=== PATIENT | male | born 1980 | race Caucasian/White ===

== ENCOUNTER 2016-06-14 13:11 | Emergency (ER) | payer MEDICARE, MEDICAID ==
[~2016-06-14] VITALS: Ht 182.9 cm; Wt 81.6 kg
[~2016-06-14 13:11] MED LIST: AMITRIPTYLINE 550 MG PO; GABAPENTIN300 MG PO; LEVEMIR100 U/ML SC; LYRICA25 MG PO; NOVOLOG FLEX100 U/ML SC; OXYCODONE 5MG TA5 MG PO
[2016-06-14] MEDS ORDERED: INSULIN RE100 UNITS/ SC (13:18)
[2016-06-14 14:00] LABS: HEMOGLOBIN 13.1 g/dL (14.1-18.0); LYMPH # 2.5 K/mm3 (0.7-4.5); LYMPH % 18.2 % (10-50)
--- NOTE | 2016-06-14 15:29 | Emergency Room Report ---
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 Had right knee surgery the first week of May 2016. He was just in hospital receiving abx for a knee infection. 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 Y Clinical Suspician of Infection? N Mental Status: 1 - Regular (Normal Baseline) Sepsis Risk:Possible Sepsis Risk Have you (or family members/close friends) recently traveled outside the [place]? N If Yes, where/when: Have you had exposure to infectious disease within the past month? TB? Other? Specify: Source patient, RN notes reviewed, family, RN/MD Exam Limitations no limitations Comment 35yo white male presents today for increasing right knee pain since s/p surgery last month between May.17 and . Pt reported he went to [facility] last month 06/03/16 for septic right knee arthritis to have right knee opened and cleaned out due to infection. Pt is unsure how area became infected. He has a hx of uncontrolled type I diabetes, which caused him to have left [facility] in the past. Pt reports leaving [facility] prior to completing iv atbx regimen. He c/o increased pain x1 week to right medial knee that feels like a sharp burning sensation since being home.. He rates pain level a 8/10, and currently on previously prescribed oxycodone 10mg Q8hr. Pt is unable to straighten knee completely since previous surgery. Pain is tolerable without movement. Pt denies redness, swelling, fever, chills, n/v/d; but did have vomitting and diarrhea x2 weeks ago. ALLERGIES Coded Allergies: No Known Allergies (12/14/15) Home Medications Reported Medications OXYCODONE IR (Oxycodone IR) 5 MG PO Q4HP PRN PAIN #105 Gabapentin (Gabapentin 300MG) 900 MG PO TID Pregabalin (Lyrica 25MG) 25 MG PO BID Amitriptyline Hcl (Amitriptyline) 50 MG PO QHS Insulin Detemir (Levemir 10ML VIAL) 18 UNITS SC BID Insulin Regular (Regular Insulin 10ML Vial) 0 UNITS SC SS History Medical History General CAD? Yes Angina: No [place]: Yes Hypertension? No Hyperlipidemia? No CHF? No DVT? Yes PE? No COPD? No Asthma? No Anemia? No GERD? No Gastric ulcers? No GI Bleed? No Hernia? No Thyroid Problems? No Hypothyroidism? No CVA? No Seizures? No Diabetes? Yes Insulin Dependent: Yes Insulin Pump: No Home FSBS? Yes Renal Insuffiency? Yes End Stage Renal Disease? No UTI? No Stones? No BPH? No GB Disease: No Nephritic Syndrome? No Asplenia? No Hepatitis? Yes Sickle Cell Disease? No Arthritis? No Migraines? No Cataracts? No Glaucoma? No MRSA? No HIV? No TB? No Anxiety? No Depression? No Cancer? No More? No Additional hx: eye exam 9 months ago. Bob shows 2 recent Oxycodone Rx's 12/03 and 12/07 for total of 195 pills Immunization Hx Ped.Immunizations UTD Yes DT/Tetanus 1-4 Years Ago Pneumonia Refuses Surgical Hx Previous Surgery?Y LEFT AKA BILATERAL SHOULDER SURGER Family History Family Hx Diabetes No CAD No Hypertension No Hyperlipidemia No Cancer No TB No Social History Smoking Hx Smoker: Current Every Day Smoker Tobacco: Yes Type Cigarettes Packs/day 1 1/2 - 2 Packs Alcohol Alcohol: No Review of Systems All Other Systems Reviewed and Negative Constitutional see HPI, denies chills, denies fever, denies malaise, denies weakness Respiratory denies no symptoms reported Cardiovascular denies no symptoms reported Gastrointestinal denies no symptoms reported, see HPI Genitourinary see HPI. denies: no symptoms reported. Musculoskeletal see HPI, joint pain, joint swelling Skin see HPI Psychiatric/Neurological no symptoms reported Physical Exam Vital Signs Vital Signs Date Time Temp Pulse Resp B/P Pulse O2 O2 Flow FiO2 Ox Delivery Rate 06/14 1723 98.9 95 18 127/86 97 06/14 1703 98.9 95 18 127/86 97 06/14 1635 18 06/14 1545 98.6 111 20 116/71 99 06/14 1456 111 20 136/79 99 06/14 1404 114 20 114/61 100 / 1311 99.0 115 20 137/71 99 General Appearance normal appearance, WD/WN, mild distress Respiratory Status Yes: trachea midline, chest symmetrical, non tender chest. No: respiratory distress. Lung Sounds bilateral: normal breath sounds, lungs clear. Cardiovascular normal exam, regular rate/rhythm, no peripheral edema, no gallop, no JVD, no murmur, no rub, normal peripheral pulses Peripheral Pulses Pulses normal Yes (left BKA) Gastrointestinal normal bowel sounds, normal exam, non tender, soft, no organomegaly Extremities limited range of motion (of the rigth knee), There is limited ROM to right knee. Pain illicited with palpation of right knee. No redness noticed. The patient is displaying swelling to anterior aspect of the right knee. 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 No Comment 03:45 pm - dr Barbour advised of the patient's condition... requested to transfer to [facility] 04:10pm-call initiated with the [facility] regarding patient's transfer back to , where his initial surgery was performed on 05.17.16. Transfer center paging Dr. Hartman, patient's orthopedic surgeon. Was put on hold. 04:20pm- case discussed with dr. Hair, advised of the patient's presentation and condition, suspicious for RIGHT knee joint effusion, possibly septic. Orthopedic surgeon, Dr. Hair, oxygen patient to be transferred to for further workup and treatment. 04:25pm-case discussed with Dr Hair, patient accepted. Prior to patient's transferred to [facility] I had a lengthy's discussion with patient advising him of the severity of his condition, and dire prognosis, with possible grade complications including , loss of organ funtion or limb, including disability. Results/Orders Laboratory Tests 06/14/16 1539: Urine Color YELLOW, Urine Appearance SL CLOUDY, Urine pH 7.0, Ur Specific [place] <= 1.005, Urine Protein NEGATIVE, Urine Ketones NEGATIVE, Urine Blood TRACE-LYSED, Urine Nitrate NEGATIVE, Urine Bilirubin NEGATIVE, Urine Urobilinogen 0.2, Ur Leukocyte Esterase 1+ H, Urine WBC 20-50, Urine Bacteria 1 +, Urine Glucose 3+ H 06/14/16 1345: Lactic Acid 0.7 06/14/16 1345: Sodium 131 L, Potassium 4.6, Chloride 95 L, Carbon Dioxide 31, BUN 9, Creatinine 0.8, Estimated Creat Clear 147, Estimated GFR (MDRD) 109, Glucose 396 H, Calcium 8.9, Total Bilirubin 0.2, AST 21, ALT 27, Alkaline Phosphatase 104, Total Protein 9.0 H, Albumin 2.6 L, Globulin 6.4 H, Albumin/Globulin Ratio 0.4 L, WBC 13.5 H, RBC 4.90, Hgb 13.1 L, Hct 41.0 L, MCV 83.6, RDW 14.2, Plt Count 715 H, MPV 7.9, Gran % 77.1, Gran # 10.4 H, Lymphocytes % 18.2, Monocytes % 3.0, Eosinophils % 0.8, Basophils % 0.9, Lymphocytes # 2.5, Monocytes # 0.4, Eosinophils # 0.1, Basophils # 0.1, PUBS MCHC 32.1, MCH 26.8 L Orders Procedure Date/time Status DIET-NOTHING BY MOUTH 06/14 D Active CULTURE, URINE 06/14 1539 Complete ELECTROCARDIOGRAM REQUEST 06/14 1326 Active CULTURE, BLOOD 06/14 1326 Active URINALYSIS/COMPLETE 06/14 1326 Complete LACTIC ACID 06/14 1326 Complete CBC WITH AUTO DIFF 06/14 1326 Complete CHEM 12 PROFILE 06/14 1326 Complete 12 LEAD EKG-JOSH (INITIAL) 06/14 UNK Active Departure Departure Time of Disposition 1702 Disposition DC/XFER from ER to T. Hosp Clinical Impression Primary Impression: Septic joint of right knee joint Qualifiers: Septic arthritis organism: due to unspecified organism Qualified Code: M00.9 - Pyogenic arthritis, unspecified Condition STABLE Referrals REX THOMASON (Family) ED Critical Care Critical Care Yes Time spent 30-74 min Vital system(s) involved: septic knee I was present at bedside for Coordinating pt's care, Interpreting EKGs/Strips , During my initial exam, Reviewing lab results, Reviewing old records, Discussing pt condition, For re-examinations, Examining radiographs If Critical Care minutes are documented, the time involved in the performance of seperately reportable procedures was not counted toward critical care time documented. I directly delivered medical care to this critically ill and/or injured patient. Timely evaluation and treatment was necessary to address the significant organ system(s) dysfunction present in this patient. at 1252 LACTIC ACID 06/14 1326 Complete CBC WITH AUTO DIFF 06/14 1326 Complete CHEM 12 PROFILE 06/14 1326 Complete 12 LEAD EKG-JOSH (INITIAL) 06/14 UNK Active Departure Departure Time of Disposition 1702 Disposition DC/XFER from ER to [facility] Hosp Clinical Impression Primary Impression: Septic joint of right knee joint Qualifiers: Septic arthritis organism: due to unspecified organism Qualified Code: M00.9 - Pyogenic arthritis, unspecified Condition STABLE Referrals REX THOMASON (Family) ED Critical Care Critical Care No
--- NOTE | 2016-06-14 15:29 | Emergency Room Report ---
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 Had right knee surgery the first week of May 2016. He was just in hospital receiving abx for a knee infection. 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 Y Clinical Suspician of Infection? N Mental Status: 1 - Regular (Normal Baseline) Sepsis Risk:Possible Sepsis Risk Have you (or family members/close friends) recently traveled outside the [place]? N If Yes, where/when: Have you had exposure to infectious disease within the past month? TB? Other? Specify: Source patient, RN notes reviewed, family, RN/MD Exam Limitations no limitations Comment 35yo white male presents today for increasing right knee pain since s/p surgery last month between May.17 and . Pt reported he went to [facility] last month 06/03/16 for septic right knee arthritis to have right knee opened and cleaned out due to infection. Pt is unsure how area became infected. He has a hx of uncontrolled type I diabetes, which caused him to have left [facility] in the past. Pt reports leaving [facility] prior to completing iv atbx regimen. He c/o increased pain x1 week to right medial knee that feels like a sharp burning sensation since being home.. He rates pain level a 8/10, and currently on previously prescribed oxycodone 10mg Q8hr. Pt is unable to straighten knee completely since previous surgery. Pain is tolerable without movement. Pt denies redness, swelling, fever, chills, n/v/d; but did have vomitting and diarrhea x2 weeks ago. ALLERGIES Coded Allergies: No Known Allergies (12/14/15) Home Medications Reported Medications OXYCODONE IR (Oxycodone IR) 5 MG PO Q4HP PRN PAIN #105 Gabapentin (Gabapentin 300MG) 900 MG PO TID Pregabalin (Lyrica 25MG) 25 MG PO BID Amitriptyline Hcl (Amitriptyline) 50 MG PO QHS Insulin Detemir (Levemir 10ML VIAL) 18 UNITS SC BID Insulin Regular (Regular Insulin 10ML Vial) 0 UNITS SC SS History Medical History General CAD? Yes Angina: No [place]: Yes Hypertension? No Hyperlipidemia? No CHF? No DVT? Yes PE? No COPD? No Asthma? No Anemia? No GERD? No Gastric ulcers? No GI Bleed? No Hernia? No Thyroid Problems? No Hypothyroidism? No CVA? No Seizures? No Diabetes? Yes Insulin Dependent: Yes Insulin Pump: No Home FSBS? Yes Renal Insuffiency? Yes End Stage Renal Disease? No UTI? No Stones? No BPH? No GB Disease: No Nephritic Syndrome? No Asplenia? No Hepatitis? Yes Sickle Cell Disease? No Arthritis? No Migraines? No Cataracts? No Glaucoma? No MRSA? No HIV? No TB? No Anxiety? No Depression? No Cancer? No More? No Additional hx: eye exam 9 months ago. Bob shows 2 recent Oxycodone Rx's 12/03 and 12/07 for total of 195 pills Immunization Hx Ped.Immunizations UTD Yes DT/Tetanus 1-4 Years Ago Pneumonia Refuses Surgical Hx Previous Surgery?Y LEFT AKA BILATERAL SHOULDER SURGER Family History Family Hx Diabetes No CAD No Hypertension No Hyperlipidemia No Cancer No TB No Social History Smoking Hx Smoker: Current Every Day Smoker Tobacco: Yes Type Cigarettes Packs/day 1 1/2 - 2 Packs Alcohol Alcohol: No Review of Systems All Other Systems Reviewed and Negative Constitutional see HPI, denies chills, denies fever, denies malaise, denies weakness Respiratory denies no symptoms reported Cardiovascular denies no symptoms reported Gastrointestinal denies no symptoms reported, see HPI Genitourinary see HPI. denies: no symptoms reported. Musculoskeletal see HPI, joint pain, joint swelling Skin see HPI Psychiatric/Neurological no symptoms reported Physical Exam Vital Signs Vital Signs Date Time Temp Pulse Resp B/P Pulse O2 O2 Flow FiO2 Ox Delivery Rate 06/14 1723 98.9 95 18 127/86 97 06/14 1703 98.9 95 18 127/86 97 06/14 1635 18 06/14 1545 98.6 111 20 116/71 99 06/14 1456 111 20 136/79 99 06/14 1404 114 20 114/61 100 / 1311 99.0 115 20 137/71 99 General Appearance normal appearance, WD/WN, mild distress Respiratory Status Yes: trachea midline, chest symmetrical, non tender chest. No: respiratory distress. Lung Sounds bilateral: normal breath sounds, lungs clear. Cardiovascular normal exam, regular rate/rhythm, no peripheral edema, no gallop, no JVD, no murmur, no rub, normal peripheral pulses Peripheral Pulses Pulses normal Yes (left BKA) Gastrointestinal normal bowel sounds, normal exam, non tender, soft, no organomegaly Extremities limited range of motion (of the rigth knee), There is limited ROM to right knee. Pain illicited with palpation of right knee. No redness noticed. The patient is displaying swelling to anterior aspect of the right knee. 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 No Comment 03:45 pm - dr Barbour advised of the patient's condition... requested to transfer to [facility] 04:10pm-call initiated with the [facility] regarding patient's transfer back to , where his initial surgery was performed on 05.17.16. Transfer center paging Dr. Hartman, patient's orthopedic surgeon. Was put on hold. 04:20pm- case discussed with dr. Hair, advised of the patient's presentation and condition, suspicious for RIGHT knee joint effusion, possibly septic. Orthopedic surgeon, Dr. Hair, oxygen patient to be transferred to for further workup and treatment. 04:25pm-case discussed with Dr Hair, patient accepted. Prior to patient's transferred to [facility] I had a lengthy's discussion with patient advising him of the severity of his condition, and dire prognosis, with possible grade complications including , loss of organ funtion or limb, including disability. Results/Orders Laboratory Tests 06/14/16 1539: Urine Color YELLOW, Urine Appearance SL CLOUDY, Urine pH 7.0, Ur Specific [place] <= 1.005, Urine Protein NEGATIVE, Urine Ketones NEGATIVE, Urine Blood TRACE-LYSED, Urine Nitrate NEGATIVE, Urine Bilirubin NEGATIVE, Urine Urobilinogen 0.2, Ur Leukocyte Esterase 1+ H, Urine WBC 20-50, Urine Bacteria 1 +, Urine Glucose 3+ H 06/14/16 1345: Lactic Acid 0.7 06/14/16 1345: Sodium 131 L, Potassium 4.6, Chloride 95 L, Carbon Dioxide 31, BUN 9, Creatinine 0.8, Estimated Creat Clear 147, Estimated GFR (MDRD) 109, Glucose 396 H, Calcium 8.9, Total Bilirubin 0.2, AST 21, ALT 27, Alkaline Phosphatase 104, Total Protein 9.0 H, Albumin 2.6 L, Globulin 6.4 H, Albumin/Globulin Ratio 0.4 L, WBC 13.5 H, RBC 4.90, Hgb 13.1 L, Hct 41.0 L, MCV 83.6, RDW 14.2, Plt Count 715 H, MPV 7.9, Gran % 77.1, Gran # 10.4 H, Lymphocytes % 18.2, Monocytes % 3.0, Eosinophils % 0.8, Basophils % 0.9, Lymphocytes # 2.5, Monocytes # 0.4, Eosinophils # 0.1, Basophils # 0.1, PUBS MCHC 32.1, MCH 26.8 L Orders Procedure Date/time Status DIET-NOTHING BY MOUTH 06/14 D Active CULTURE, URINE 06/14 1539 Complete ELECTROCARDIOGRAM REQUEST 06/14 1326 Active CULTURE, BLOOD 06/14 1326 Active URINALYSIS/COMPLETE 06/14 1326 Complete LACTIC ACID 06/14 1326 Complete CBC WITH AUTO DIFF 06/14 1326 Complete CHEM 12 PROFILE 06/14 1326 Complete 12 LEAD EKG-JOSH (INITIAL) 06/14 UNK Active Departure Departure Time of Disposition 1702 Disposition DC/XFER from ER to T. Hosp Clinical Impression Primary Impression: Septic joint of right knee joint Qualifiers: Septic arthritis organism: due to unspecified organism Qualified Code: M00.9 - Pyogenic arthritis, unspecified Condition STABLE Referrals REX THOMASON (Family) ED Critical Care Critical Care Yes Time spent 30-74 min Vital system(s) involved: septic knee I was present at bedside for Coordinating pt's care, Interpreting EKGs/Strips , During my initial exam, Reviewing lab results, Reviewing old records, Discussing pt condition, For re-examinations, Examining radiographs If Critical Care minutes are documented, the time involved in the performance of seperately reportable procedures was not counted toward critical care time documented. I directly delivered medical care to this critically ill and/or injured patient. Timely evaluation and treatment was necessary to address the significant organ system(s) dysfunction present in this patient. at 1252 LACTIC ACID 06/14 1326 Complete CBC WITH AUTO DIFF 06/14 1326 Complete CHEM 12 PROFILE 06/14 1326 Complete 12 LEAD EKG-JOSH (INITIAL) 06/14 UNK Active Departure Departure Time of Disposition 1702 Disposition DC/XFER from ER to [facility] Hosp Clinical Impression Primary Impression: Septic joint of right knee joint Qualifiers: Septic arthritis organism: due to unspecified organism Qualified Code: M00.9 - Pyogenic arthritis, unspecified Condition STABLE Referrals REX THOMASON (Family) ED Critical Care Critical Care No
[2016-06-14 15:45] LABS: URINE BILIRUBIN - DIPSTICK NEGATIVE (NEG); URINE BLOOD TRACE-LYSED (NEG)
[2016-06-14 17:23] VITALS: BP 127/86
== END 2016-06-14 17:24 | disposition short-term general hospital (02) ==
LOC: ER 13:11
PROVIDERS: Emergency Medicine
DX: M00.9 Pyogenic arthritis, unspecified (principal); E10.65 Type 1 diabetes mellitus with hyperglycemia; Z79.4 Long term (current) use of insulin; Z72.0 Tobacco use
CPT/HCPCS: J2405

== ENCOUNTER 2016-08-23 10:39 | Emergency (ER) | payer MEDICARE, MEDICAID ==
[~2016-08-23] VITALS: Ht 182.9 cm; Wt 81.6 kg
[~2016-08-23 10:39] MED LIST changes: +INSULIN RE100 UNITS/ SC
[2016-08-23] MEDS ORDERED: LEXAPRO 10 MG T10 MG PO (10:46)
--- NOTE | 2016-08-23 10:53 | Emergency Room Report ---
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 N Clinical Suspician of Infection? N Mental Status: 1 - Regular (Normal Baseline) Sepsis Risk:Low Sepsis Risk Have you (or family members/close friends) recently traveled outside the [place]? N If Yes, where/when: Have you had exposure to infectious disease within the past month? TB? Other? Specify: Patient states he felt his normal self last night and ate normal and took his insulin normally he states this morning he had not eaten yet and he did not check her sugar but he took a sliding scale insulin dose E doesn't remember exactly how much. He states he then went back to sleep and was found by his significant other in the bed and unresponsive and EMS family checked his sugar was 34 and they attempted to give him some oral glucose, and by the time EMS arrived the patient was somewhat aroused and he sugar at that time was 87 and upon arrival here patient is back to his normal self he denies any complaints or any problems he states he uses normal self last night when he went to bed he has no fevers chills or cough or any infections, eyes any pain and he states this morning when he woke up he felt his normal self as well prior to taking his insulin and that he just did not manage to eat this morning before he laid back down in bed and went back to sleep. Comment pt refusing lab draw per rn desires to leave ALLERGIES Coded Allergies: No Known Allergies (12/14/15) Home Medications Reported Medications OXYCODONE IR (Oxycodone IR) 5 MG PO Q4HP PRN PAIN #105 Gabapentin (Gabapentin 300MG) 900 MG PO TID Pregabalin (Lyrica 25MG) 25 MG PO BID Amitriptyline Hcl (Amitriptyline) 50 MG PO QHS Insulin Detemir (Levemir 10ML VIAL) 18 UNITS SC BID Insulin Regular (Regular Insulin 10ML Vial) 0 UNITS SC SS Escitalopram Oxalate (Lexapro 10MG) 10 MG PO DAILY History Medical History General CAD? Yes Angina: No [place]: Yes Hypertension? No Hyperlipidemia? No CHF? No DVT? Yes PE? No COPD? No Asthma? No Anemia? No GERD? No Gastric ulcers? No GI Bleed? No Hernia? No Thyroid Problems? No Hypothyroidism? No CVA? No Seizures? No Diabetes? Yes Insulin Dependent: Yes Insulin Pump: No Home FSBS? Yes Renal Insuffiency? Yes End Stage Renal Disease? No UTI? No Stones? No BPH? No GB Disease: No Nephritic Syndrome? No Asplenia? No Hepatitis? Yes Sickle Cell Disease? No Arthritis? No Migraines? No Cataracts? No Glaucoma? No MRSA? No HIV? No TB? No Anxiety? No Depression? No Cancer? No More? No Additional hx: eye exam 9 months ago. Bob shows 2 recent Oxycodone Rx's 12/03 and 12/07 for total of 195 pills Immunization Hx DT/Tetanus 1-4 Years Ago Pneumonia Refuses Surgical Hx Previous Surgery?Y LEFT AKA BILATERAL SHOULDER SURGER Family History Family Hx Diabetes No CAD No Hypertension No Hyperlipidemia No Cancer No TB No Social History Smoking Hx Smoker: Never Smoker Tobacco: No Packs/day 1 1/2 - 2 Packs Alcohol Alcohol: No Review of Systems All Other Systems Reviewed and Negative Physical Exam Vital Signs Vital Signs Date Time Temp Pulse Resp B/P Pulse O2 O2 Flow FiO2 Ox Delivery Rate 08/23 1124 98.7 87 18 122/77 98 08/23 1041 98.7 104 18 134/91 98 General Appearance: Nontoxic Head: Normocephalic, without obvious abnormality, atraumatic. Eyes: conjunctiva/corneas clear ENT: Mucous membranes moist. Neck: No jugular venous distention. Cardiac: regular rate and rhythm Lungs: Clear to auscultation bilaterally Abdomen: Nontender, Nondistended, positive bowel sounds, no rebound : No CVA tenderness Extremities: no edema Musculoskeletal: No chest wall tenderness Skin: No rashes or lesions to exposed skin. Neurologic: Alert. No gross focal deficits Psychiatric: Normal affect (Brain BURROUGHS, Bi) General Appearance normal appearance Respiratory Status No: respiratory distress. Cardiovascular normal exam Neurologic alert Medical Decision Making LABS/Meds/Orders Pt receiving controlled substance in ED? No Results/Orders Laboratory Tests 08/23/16 1138: POC Glucose 165 H 08/23/16 1043: POC Glucose Pending Orders Procedure Date/time Status DIET-1800 CALORIE ADA 08/23 D Active FINGERSTICK BLOOD SUGAR 08/23 1138 Complete RENAL FUNCTION PANEL 08/23 1053 Active CBC WITH AUTO DIFF 08/23 1053 Active FINGERSTICK BLOOD SUGAR 08/23 1043 Active Departure Departure Disposition DC Home or Self Care(routine) Clinical Impression Primary Impression: Hypoglycemia due to insulin Condition STABLE Referrals NO REFERRAL (Family) Patient Instructions DI for Hypoglycemia Additional Instructions check fsbs and eat prior to insulin therapy ED Critical Care Critical Care No at 6302
[2016-08-23 11:51] VITALS: BP 122/77
== END 2016-08-23 11:56 | disposition home or self-care (01) ==
LOC: ER 10:39
DX: E11.649 Type 2 diabetes mellitus with hypoglycemia without coma (principal); E11.65 Type 2 diabetes mellitus with hyperglycemia; Z79.4 Long term (current) use of insulin